=== PATIENT | male | born 1965 | race Caucasian/White ===

== ENCOUNTER 2018-06-01 15:34 | Emergency (ER) | payer OTHER ==
[~2018-06-01] VITALS: Ht 182.9 cm; Wt 115.9 kg
[2018-06-01] MEDS ORDERED: propofol 10mg/ml 20ml vial IV ONE (15:40)
[2018-06-01] MEDS ORDERED: morphine 4 MG/ML inj SYRINge IV ONE (15:40)
[2018-06-01] MEDS ORDERED: ondansetron/PF 4mg/2ml inj IV ONE (15:40)
[2018-06-01] MEDS ORDERED: HYDR-3965 PO (16:36)
[2018-06-01] MEDS ORDERED: ketorolac trometh. 30mg/ml inj. IV ONE (16:40)
[2018-06-01 16:59] VITALS: BP 148/85
== END 2018-06-01 17:08 | disposition home or self-care (01) ==
LOC: ER 15:35
DX: S43.005A Unspecified dislocation of left shoulder joint, initial encounter (principal); S80.211A Abrasion, right knee, initial encounter; Z79.899 Other long term (current) drug therapy; W01.0XXA Fall on same level from slipping, tripping and stumbling without subsequent striking against object, initial encounter; Y93.89 Activity, other specified; Y92.89 Other specified places as the place of occurrence of the external cause; Y99.8 Other external cause status
CPT/HCPCS: 23650; 73020; 73030; 73630; 96374; 96375; 99152; 99285; J1885; J2270; J2405; J2704